=== PATIENT | male | born 1990 | race Caucasian/White ===

== ENCOUNTER 2016-10-16 23:22 | Emergency (ER) | payer OTHER ==
[2016-10-16 23:34] VITALS: BMI 32.5
[2016-10-16] MEDS ORDERED: MORPHINE 2 MG/ML SYRINGE IVP STA (23:40)
[2016-10-16] MEDS ORDERED: SODIUM CHLORIDE 1,000 ML IV STA ×2 (23:40)
[2016-10-16] MEDS ORDERED: ZOFRAN 4 MG/2 ML IVP STA (23:40)
[2016-10-16] MEDS ORDERED: DECADRON 4 MG/ML SDV IVP STA (23:40)
[2016-10-16] MEDS ORDERED: ROCEPHIN 1 GM in SODIUM CHLORIDE 50 ML IV STA (23:42)
[2016-10-16] MEDS ORDERED: ROCEPHIN ONE (23:59)
[2016-10-17 00:21] LABS: BASOPHILS # (AUTO) 0.1 K/uL (0-0.2); BASOPHILS % (AUTO) 0.6 % (0.0-3.0); EOSINOPHILS # (AUTO) 0.3 K/ul (0.0-0.7); EOSINOPHILS % (AUTO) 1.8 % (0.0-7.0); HEMATOCRIT 38.9 % (42.0-52.0); HEMOGLOBIN 13.2 g/dl (14.0-18.0); IMMATURE GRANULOCYTE % (AUTO) 0.7 % (0.0-5.0); LYMPHOCYTES # (AUTO) 3.3 K/uL (0.60-3.4); LYMPHOCYTES % (AUTO) 23.9 (10.0-50.0); MEAN CORPUSCULAR HEMOGLOBIN 26.9 pg (27.0-31.0); MEAN CORPUSCULAR HGB CONC 33.9 (31.8-35.4); MEAN CORPUSCULAR VOLUME 79.2 fl (80.0-94.0); MONOCYTES # (AUTO) 1.4 K/uL (0.4-2.0); NEUTROPHILS # (AUTO) 8.7 K/ul (2.0-6.9); PLATELET COUNT 258 10^3/uL (140-440); RED BLOOD COUNT 4.91 10^6/ul (4.70-6.10); WHITE BLOOD COUNT 13.75 K/ul (4.2-10.2)
[2016-10-17 00:32] LABS: MONO INTERNAL QC INTERNAL QC VALID
[2016-10-17 00:41] LABS: ALBUMIN 3.8 g/dL (3.4-5.0); ALBUMIN/GLOBULIN RATIO 1.09; ANION GAP 12.8; BILIRUBIN,TOTAL 0.35 mg/dL (0.00-1.20); BUN/CREATININE RATIO 10.94; CALCIUM 9.3 mg/dL (8.2-10.2); CREATININE 1.37 mg/dL (0.60-1.10); POTASSIUM 3.8 mmol/L (3.5-5.1); TOTAL PROTEIN 7.3 g/dL (6.4-8.2)
--- NOTE | 2016-10-17 01:35 | CT ---
EXAM: CT soft tissue neck without with intravenous contrast 10/16/2016. Sagittal and coronal refor matted images obtained HISTORY: Sore throat and fever COMPARISON: 06/21/2009 FINDINGS: The airway is patent and within the midline. Subtle soft tissue and prominence at the le cornelio of the palatine and lingular tonsils with suggestion of hyperemia. This may be infectious/infla mmatory. The retropharyngeal soft tissues appear within normal limits. There is no evidence of flu id collection or abscess. The epiglottis is within normal limits. The larynx shows no acute abnormality. The visualized port ion of the trachea is unremarkable. The pulmonary apices are unremarkable. Physiologic appearing lymph nodes are present within both sides of the neck. No pathologic lymphade nopathy. IMPRESSION: 1. Subtle soft tissue prominence with associated hyperemia the level of the palatine and lingual to nsils. This could be infectious/inflammatory. 2. The airway remains patent and within the midline. 3. No underlying fluid collection or abscess.
--- NOTE | 2016-10-17 02:09 | ED.PDOC ---
General ED Provider: Dr. WALI BAKER-ER Chief Complaint: Sore Throat Stated Complaint: my throat hurts Time Seen by Physician: 23:30 Mode of Arrival: Walk-In Information Source: Patient Exam Limitations: No limitations Nursing and Triage Documentation Reviewed and Agree: Yes EENT Complaint Exam - Throat Complaint/Exam Onset/Duration: 24hrs Symptoms Are: Still present Timimg: Constant Initial Severity: Mild Current Severity: Mild Alleviating: Reports: None Associated Signs and Symptoms: Reports: Fever. Denies: Dysphagia, Drooling, Foreign body sensation, Chills, Cough, Wheezing, Hoarseness, Sinus discomfort, Nasal congestion, Difficulty breathing, Lethargy, Irritability, Decreased activity, Vomiting, Diarrhea, Decreased hearing, Ear drainage Uvula Midline: Yes Nazia-tonsillar Fluctuence: No Scarlatinaform Rash Present: No Exanthem: Present: Pharynx Stridor Present: No Sinus Tenderness Present: No Tonsillar Hypertrophy Present: Yes Tonsillar Exudate Present: No Nazia-tonsillar Swelling Present: No Adenopathy Present: Yes Splenomegaly Present: No Differential Diagnoses: Tonsillitis Review of Systems - Review Of Systems Constitutional: Reports: Fever, Weakness Eyes: Reports: No symptoms Ears, Nose, Mouth, Throat: Reports: Throat pain, Throat swelling Respiratory: Reports: No symptoms Cardiac: Reports: No symptoms GI: Reports: No symptoms : Reports: No symptoms Musculoskeletal: Reports: No symptoms Skin: Reports: No symptoms Neurological: Reports: No symptoms Endocrine: Reports: No symptoms Hematologic/Lymphatic: Reports: No symptoms All Other Systems: Reviewed and Negative Past Medical History - Past Medical History Previously Healthy: Yes Endocrine: Reports: None Cardiovascular: Reports: None Respiratory: Reports: None Hematological: Reports: None Gastrointestinal: Reports: None Genitourinary: Reports: None Neuro/Psych: Reports: None Musculoskeletal: Reports: None Cancer: Reports: None - Surgical History General Surgical History: Reports: Unknown - Family History Family History: Reports: Unknown - Social History Smoking Status: Current every day smoker, Heavy tobacco smoker Hx Substance Use: No (occasional marijuana) Alcohol Screening: None Lives: With family - Immunizations Tetanus Shot up to Date: Yes Physical Exam - Physical Exam Appearance: Well-appearing, No pain distress, Well-nourished Eyes: DENIZ, EOMI, Conjunctiva clear ENT: Ears normal, Nose normal, Oropharynx normal Neck: Supple Respiratory: Airway patent Cardiovascular: RRR, Pulses normal, No rub, No murmur GI/: Soft, Nontender, No masses, Bowel sounds normal, No Organomegaly Musculoskeletal: Normal strength, ROM intact, No edema, No calf tenderness Skin: Warm, Dry, Normal color Neurological: Sensation intact, Motor intact, Reflexes intact, Cranial nerves intact, Alert, Oriented Psychiatric: Affect appropriate, Mood appropriate Interpretation - Radiology Interpretation Radiology Interpretation By: Radiologist Radiology Results: Positive ("soft tissue prominence of palatine/lingual tonsils ") Re-Evaluation - Re-Evaluation Time of Re-Evaluation: 02:10 Status: Improved Vital Signs Stable: Yes Pain Level: 1 Appearance: NAD Lungs: Clear Skin: Warm and Dry Neuro: Alert and Oriented X3 CV: RRR Critical Care Note - Critical Care Note Total Time (mins): 0 Course - Course Hematology/Chemistry: 10/16/16 23:59 10/16/16 23:59 Orders, Labs, Meds: Lab Review 10/16/16 23:59 WBC 13.75 H RBC 4.91 Hgb 13.2 L Hct 38.9 L MCV 79.2 L MCH 26.9 L MCHC 33.9 RDW Coeff of Adali 13.5 Plt Count 258 Immature Gran % (Auto) 0.7 Neut % (Auto) 63.0 Lymph % (Auto) 23.9 [place] % (Auto) 10.0 Eos % (Auto) 1.8 Baso % (Auto) 0.6 Immature Gran # (Auto) 0.1 Neut # 8.7 H Lymph # 3.3 [place] # 1.4 Eos # 0.3 Baso # 0.1 Sodium 138 Potassium 3.8 Chloride 105 Carbon Dioxide 24 Anion Gap 12.8 BUN 15 Creatinine 1.37 H Estimated GFR (MDRD) 63.00 BUN/Creatinine Ratio 10.94 Glucose 99 Calcium 9.3 Total Bilirubin 0.35 AST 25 ALT 40 Alkaline Phosphatase 58 Total Protein 7.3 Albumin 3.8 Globulin 3.5 Albumin/Globulin Ratio 1.09 Infectious [place] Assay Negative Orders Category Date Time Status NPO REMINDER: IMAGING ONCE CARE 10/16/16 23:41 Completed IV [ED IV/MEDIPORT/POWERPORT] .ONCE EMERGENCY 10/16/16 23:40 Active CBC W/ AUTO DIFF Stat LAB 10/16/16 23:59 Completed COMPREHENSIVE METABOLIC PANEL Stat LAB 10/16/16 23:59 Completed MOLECULAR GROUP A STREP Stat LAB 10/16/16 23:40 Results MONONUCLOSIS SCREEN Stat LAB 10/16/16 23:59 Completed STREP SCREEN Stat LAB 10/16/16 23:40 Results 0.9 % Sodium Chloride [Saline Flush] MEDS 10/16/16 23:40 Ordered 1 syr IVF PRN PRN Ceftriaxone Sodium [Rocephin] MEDS 10/16/16 23:59 Discontinued 1 gm .ROUTE .STK-MED ONE Ceftriaxone Sodium [Rocephin] 1 gm MEDS 10/16/16 23:42 Discontinued 0.9 % Sodium Chloride [Sodium Chloride] 50 ml IV ONCE Dexamethasone 4 mg/ml Inj [Decadron 4 mg/ml Sdv] MEDS 10/16/16 23:40 Discontinued 4 mg IVP ONCE STA Morphine Sulfate [Morphine 2 mg/ml Syringe] MEDS 10/16/16 23:40 Discontinued 2 mg IVP ONCE STA Ondansetron HCl/Pf [Zofran 4 mg/2 ml] MEDS 10/16/16 23:40 Discontinued 4 mg IVP ONCE STA Sodium Chloride 0.9% [Sodium Chloride] 1,000 ml MEDS 10/16/16 23:40 Active IV 100 mls/hr CT SOFT TISSUE NECK W/WO CONT Stat RADS 10/17/16 00:05 Completed Medications Generic Name Dose Route Start Last Admin Trade Name Freq PRN Reason Stop Dose Admin Sodium Chloride 1,000 mls @ 100 mls/hr 10/16/16 23:40 10/17/16 00:09 Sodium Chloride IV 10/17/16 09:39 100 mls/hr .Q10H STA Administration Sodium Chloride 1 syr 10/16/16 23:40 Saline Flush IVF PRN PRN To flush IV Discontinued Medications Generic Name Dose Route Start Last Admin Trade Name Freq PRN Reason Stop Dose Admin Dexamethasone Sodium Phosphate 4 mg 10/16/16 23:40 10/17/16 00:09 Decadron 4 Mg/Ml Sdv IVP 10/16/16 23:41 4 mg ONCE STA Administration Ceftriaxone Sodium 1 gm/ 50 mls @ 75 mls/hr 10/16/16 23:42 10/17/16 00:09 Sodium Chloride IV 10/17/16 00:21 75 mls/hr ONCE STA Administration Morphine Sulfate 2 mg 10/16/16 23:40 10/17/16 00:09 Morphine 2 Mg/Ml Syringe IVP 10/16/16 23:41 2 mg ONCE STA Administration Ondansetron HCl 4 mg 10/16/16 23:40 10/17/16 00:09 Zofran 4 Mg/2 Ml IVP 10/16/16 23:41 4 mg ONCE STA Administration Vital Signs: Temp Pulse Resp BP Pulse Ox 10/16/16 23:25 98.7 F 96 H 20 164/103 H 98 Departure - Departure Time of Disposition: 02:10 Disposition: HOME SELF-CARE Discharge Problem: Tonsillitis Instructions: Tonsillitis (ED) Condition: Good Pt referred to PMD for follow-up: Yes Additional Instructions: augmentin 875mg bid x 7days--push fluids--see clinic next week--and have kidney function rechecked.. Allergies/Adverse Reactions: Allergies No Known Allergies Allergy (Unverified 10/16/16 23:34) Home Medications: Ambulatory Orders Multivitamin [One Daily Multivitamin] 1 tab PO DAILY 10/16/16 Disposition Discussed With: Patient
[2016-10-17 03:43] VITALS: BP 140/82; TEMP 98.5
== END 2016-10-17 02:35 | disposition home or self-care (01) ==
LOC: ED 23:22
DX: J03.90 Acute tonsillitis, unspecified (principal); F17.210 Nicotine dependence, cigarettes, uncomplicated
CPT/HCPCS: 36415; 80053; 85025; 86308; 87651; 87880; 96361; 96365; 96375; 99284

== ENCOUNTER 2016-11-02 00:16 | Emergency (ER) ==
[2016-11-02 00:17] VITALS: BMI 32.5
[2016-11-02 00:30] VITALS: BP 140/78; TEMP 99.2
--- NOTE | 2016-11-02 01:09 | ED.PDOC ---
General ED Provider: Dr. AUDREY DE JESUS Chief Complaint: Bite Stated Complaint: Patient is a 25 year old male who comes to the Er with complaints of a bump on right outer thigh on wed evening, It became red, swollen and had come to a head the following nite. He popped it after shower and drainged tanish green discharge with blood. Pain has improved since. he has not been feeling well since, weak and tired, chills, diarrhea x5-6 today. area to right upper outer thigh is warm to touch, center is very dark approx 0.5cm, reddened area around is 4.5cmx 4cm. Time Seen by Physician: 01:05 Mode of Arrival: Walk-In Information Source: Patient Exam Limitations: No limitations Primary Care Provider: Shad RASCON Nursing and Triage Documentation Reviewed and Agree: Yes Skin Complaint Exam - Skin/Soft Tissue Complaint/Exam Onset/Duration: 1 week Symptoms Are: Still present Timing: Constant Initial Severity: Severe Current Severity: Mild Location: Right Thigh Character: Reports: Redness, Swelling, Raised, Painful Aggravating: Reports: Touch Associated Signs and Symptoms: Reports: Drainage (now drying up ), Bruising, Tenderness. Denies: Fever, Chills, Itching, Red streaks, Joint swelling Related History: Reports: Similar episode Related Surgical History: Reports: None Recent Exposure to Others w/Similar Symptoms: No Skin Findings: Present: Erythema Joint Tenderness Present: No Differential Diagnoses: Abscess, Cellulitis Review of Systems - Review Of Systems Constitutional: Reports: No symptoms Eyes: Reports: No symptoms Ears, Nose, Mouth, Throat: Reports: No symptoms Respiratory: Reports: No symptoms Cardiac: Reports: No symptoms GI: Reports: No symptoms : Reports: No symptoms Musculoskeletal: Reports: No symptoms Skin: Reports: Lesions Neurological: Reports: Anxiety Endocrine: Reports: No symptoms Hematologic/Lymphatic: Reports: No symptoms All Other Systems: Reviewed and Negative Past Medical History - Past Medical History Previously Healthy: Yes Endocrine: Reports: None Cardiovascular: Reports: None Respiratory: Reports: None Hematological: Reports: None Gastrointestinal: Reports: None Genitourinary: Reports: None Neuro/Psych: Reports: None Musculoskeletal: Reports: None Cancer: Reports: None - Surgical History General Surgical History: Reports: Unknown - Family History Family History: Reports: Unknown - Social History Smoking Status: Current every day smoker, Heavy tobacco smoker 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) Alcohol Screening: None - Immunizations Tetanus Shot up to Date: Yes Physical Exam - Physical Exam Appearance: Ill-appearing, Obese Pain Distress: Mild Eyes: DENIZ, EOMI, Conjunctiva clear ENT: Ears normal, Nose normal, Oropharynx normal Neck: Supple Respiratory: Airway patent, Breath sounds clear, Breath sounds equal, Respirations nonlabored Cardiovascular: RRR, Pulses normal, No rub, No murmur GI/: Soft, Nontender, No masses, Bowel sounds normal, No Organomegaly Musculoskeletal: Normal strength, ROM intact, No edema, No calf tenderness Skin: Warm, Dry Neurological: Sensation intact, Motor intact, Reflexes intact, Cranial nerves intact, Alert, Oriented Psychiatric: Affect appropriate, Mood appropriate Critical Care Note - Critical Care Note Total Time (mins): 0 Course - Course Orders, Labs, Meds: Orders Category Date Time Status Ibuprofen [Motrin] MEDS 11/02/16 01:11 Discontinued 600 mg PO ONCE STA Sulfamethoxazole/Trimethoprim [Bactrim Ds 800/160 mg] MEDS 11/02/16 01:11 Discontinued 1 tab PO ONCE STA Medications Discontinued Medications Generic Name Dose Route Start Last Admin Trade Name Freq PRN Reason Stop Dose Admin Ibuprofen 600 mg 11/02/16 01:11 11/02/16 01:20 Motrin PO 11/02/16 01:12 600 mg ONCE STA Administration Trimethoprim/Sulfamethoxazole 1 tab 11/02/16 01:11 11/02/16 01:19 Bactrim Ds 800/160 Mg PO 11/02/16 01:12 1 tab ONCE STA Administration Vital Signs: Temp Pulse Resp BP Pulse Ox 11/02/16 00:17 99.2 F 102 H 20 140/78 98 Departure - Departure Time of Disposition: 01:09 Disposition: HOME SELF-CARE Discharge Problem: Abscess Instructions: Abscess (ED) Condition: Fair Pt referred to PMD for follow-up: Yes Additional Instructions: take antibiotics as prescribed Take Motrin or Tylenol for fever. Follow up with PCP in 3 day Prescriptions: Ibuprofen [Motrin] 600 mg PO Q6H PRN #30 tablet PRN Reason: Analgesia Sulfamethoxazole/Trimethoprim [Bactrim Ds Tablet] 1 each PO BID #20 tablet Allergies/Adverse Reactions: Allergies No Known Allergies Allergy (Verified 11/02/16 00:30) Home Medications: Ambulatory Orders Multivitamin [One Daily Multivitamin] 1 tab PO DAILY 10/16/16 Ibuprofen [Motrin] 600 mg PO Q6H PRN #30 tablet 11/02/16 Sulfamethoxazole/Trimethoprim [Bactrim Ds Tablet] 1 each PO BID #20 tablet 11/02 Disposition Discussed With: Patient
[2016-11-02] MEDS: BACTRIM DS 800/160 MG PO STA (01:19)
[2016-11-02] MEDS: MOTRIN PO STA (01:20)
== END 2016-11-02 01:30 | disposition home or self-care (01) ==
LOC: ED 00:16
DX: L02.415 Cutaneous abscess of right lower limb (principal); F17.210 Nicotine dependence, cigarettes, uncomplicated
CPT/HCPCS: 99282

== ENCOUNTER 2017-10-26 20:31 | Emergency (ER) ==
[2017-10-26 20:42] VITALS: BP 138/92; TEMP 97.3; BMI 30.8
[2017-10-26] MEDS ORDERED: LOMOTIL PO STA (21:04)
[2017-10-26] MEDS ORDERED: ZOFRAN 4 MG/2 ML IVP STA (21:04)
[2017-10-26] MEDS ORDERED: LACTATED RINGERS 1,000 ML IV STA (21:04)
--- NOTE | 2017-10-26 21:42 | ED.PDOC ---
General ED Provider: Dr. AUDREY DE JESUS Chief Complaint: Nausea/Vomiting Stated Complaint: Patient is a 26 year old male who comes to the ER with Sudden onset abdominal pain, diarrhea and vomiting. States the pain is cramping. States he ate watermelon an hour ago. Took a TUMS antacid. Time Seen by Physician: 20:45 Mode of Arrival: Walk-In Information Source: Patient Exam Limitations: No limitations Primary Care Provider: GAYATHRI ALAMO Nursing and Triage Documentation Reviewed and Agree: Yes Reviewed sepsis parameters & appropriate labs ordered?: No System Inflammatory Response Syndrome: Pulse >90 BPM Sepsis Protocol: For patient's 13 years and over: Temp is 96.8 and below OR 101 and greater Pulse >90 BPM Resp >20/minute Acutely Altered Mental Status Are patient's symptoms suggestive of a new infection, such as: -Pneumonia -Skin, Soft Tissue -Endocarditis -UTI -Bone, Joint Infection -Implantable Device -Acute Abdominal Infection -Wound Infection -Meningitis -Blood Stream Catheter Infection -Unknown GI Complaint Exam - Vomiting/Diarrhea Complaint/Exam Onset/Duration: 2 hours Symptoms Are: Still present Episodes of Vomiting over last 24 Hours: 5 Episodes of Diarrhea Over Last 24 Hours: 10 Initial Severity: Moderate Current Severity: Moderate Character of Vomiting: Reports: Non-bilious Character of Diarrhea: Reports: Watery Aggravating: Reports: Food Alleviating: Reports: NPO Associated Signs and Symptoms: Reports: Light-headedness, Abdominal pain, Cramping Related History: Denies: Similar episode, Recent antibiotics Last Bowel Movement: just prior to arrival. Non-GI Risk Factors: Reports: None Surgical Obstruction Risk Factors: Reports: None Related Surgical History: Reports: None Abdominal Findings: Present: None [place] Respirations Present: No Differential Diagnoses: Gastritis, Viral Gastroenteritis, Bacterial Gastroenteritis Review of Systems - Review Of Systems Constitutional: Reports: No symptoms Eyes: Reports: No symptoms Ears, Nose, Mouth, Throat: Reports: No symptoms Respiratory: Reports: No symptoms Cardiac: Reports: No symptoms GI: Reports: Nausea, Poor appetite, Poor fluid intake, Vomiting : Reports: No symptoms Musculoskeletal: Reports: No symptoms Skin: Reports: No symptoms Neurological: Reports: Anxiety Endocrine: Reports: No symptoms Hematologic/Lymphatic: Reports: No symptoms All Other Systems: Reviewed and Negative Past Medical History - Past Medical History Previously Healthy: Yes Endocrine: Reports: None Cardiovascular: Reports: None Respiratory: Reports: Asthma Hematological: Reports: None Gastrointestinal: Reports: None Genitourinary: Reports: None Neuro/Psych: Reports: None Musculoskeletal: Reports: Gout Cancer: Reports: None Other Pertinent Past Medical History: pyloric stenosis as infant, - Surgical History General Surgical History: Reports: Adenoidectomy, Other (pe tubes ) - Family History Family History: Reports: Unknown - Social History Smoking Status: Current every day smoker, Heavy tobacco smoker Hx Substance Use: Yes (occasionally) Alcohol Screening: None Physical Exam - Physical Exam Appearance: Ill-appearing Ill-appearing: Moderate Respiratory: Airway patent Cardiovascular: Pulses normal, No rub, No murmur, Tachycardia GI/: Soft, Nontender, No masses, Bowel sounds normal, No Organomegaly Musculoskeletal: Normal strength, ROM intact, No edema, No calf tenderness Skin: Warm, Dry, Normal color Psychiatric: Anxious Interpretation - Radiology Interpretation Radiology Interpretation By: Radiologist Radiology Results: Negative Exam Interpreted: CT Scan Critical Care Note - Critical Care Note Total Time (mins): 0 Course - Course Hematology/Chemistry: 10/26/17 21:10 10/26/17 21:10 Orders, Labs, Meds: Lab Review 10/26/17 10/26/17 21:10 21:10 WBC 20.11 H RBC 5.52 Hgb 14.9 Hct 44.5 MCV 80.6 MCH 27.0 MCHC 33.5 RDW Coeff of Adali 13.5 Plt Count 336 Immature Gran % (Auto) 0.7 Neut % (Auto) 73.3 Lymph % (Auto) 17.4 [place] % (Auto) 7.1 Eos % (Auto) 1.1 Baso % (Auto) 0.4 Immature Gran # (Auto) 0.1 Neut # (Auto) 14.7 H Lymph # (Auto) 3.5 H [place] # (Auto) 1.4 Eos # (Auto) 0.2 Baso # (Auto) 0.1 Sodium 140 Potassium 4.0 Chloride 102 Carbon Dioxide 26 Anion Gap 16.0 BUN 11 Creatinine 1.44 H Estimated GFR (MDRD) 59.00 BUN/Creatinine Ratio 7.63 Glucose 124 H Calcium 10.1 Total Bilirubin 0.4 AST 28 ALT 35 Alkaline Phosphatase 79 Total Protein 8.5 H Albumin 4.3 Globulin 4.2 Albumin/Globulin Ratio 1.02 Orders Category Date Time Status ED IV/MEDIPORT/POWERPORT .ONCE EMERGENCY 10/26/17 21:03 Active CBC W/ AUTO DIFF Stat LAB 10/26/17 21:10 Completed COMPREHENSIVE METABOLIC PANEL Stat LAB 10/26/17 21:10 Completed 0.9 % Sodium Chloride [Saline Flush] MEDS 10/26/17 21:04 Discontinued 1 syr IVF PRN PRN Dicyclomine HCl [Bentyl] MEDS 10/26/17 22:50 Discontinued 20 mg PO ONCE STA Diphenoxylate HCl/Atropine [Lomotil] MEDS 10/26/17 21:04 Discontinued 1 tab PO ONCE STA Ondansetron HCl/Pf [Zofran 4 mg/2 ml] MEDS 10/26/17 21:04 Discontinued 4 mg IVP ONCE STA Ringers Lactated Solution [Lactated Ringers] 1,000 ml MEDS 10/26/17 21:[address] ABD/PEL WO RENAL STONE PROT Stat RADS 10/26/17 22:50 Completed Medications Discontinued Medications Generic Name Dose Route Start Last Admin Trade Name Freq PRN Reason Stop Dose Admin Dicyclomine HCl 20 mg 10/26/17 22:50 10/26/17 23:18 Bentyl PO 10/26/17 22:51 20 mg ONCE STA Administration Diphenoxylate HCl/Atropine 1 tab 10/26/17 21:04 10/26/17 21:56 Lomotil PO 10/26/17 21:05 1 tab ONCE STA Administration Lactated Ringer's 1,000 mls @ 1,000 mls/hr 10/26/17 21:04 10/26/17 21:25 Lactated Ringers IV 10/26/17 22:03 1,000 mls/hr BOLUS STA Administration Ondansetron HCl 4 mg 10/26/17 21:04 10/26/17 21:25 Zofran 4 Mg/2 Ml IVP 10/26/17 21:05 4 mg ONCE STA Administration Sodium Chloride 1 syr 10/26/17 21:04 Saline Flush IVF PRN PRN To flush IV Vital Signs: Temp Pulse Resp BP Pulse Ox 10/26/17 20:32 97.3 F L 111 H 20 138/92 H 98 Departure - Departure Time of Disposition: 00:03 Disposition: HOME SELF-CARE Discharge Problem: Gastroenteritis and colitis, viral, Gastroenteritis due to food toxin Instructions: Gastroenteritis (ED) Condition: Fair Pt referred to PMD for follow-up: Yes IPMP verified?: No Additional Instructions: Push fluids Follow up with PCP in 2-3 days Return if worse Prescriptions: Dicyclomine HCl [Bentyl] 10 mg PO TID PRN #20 capsule PRN Reason: Abdominal Pain Diphenoxylate HCl/Atropine [Lomotil 2.5-0.025 mg Tablet] 1 each PO TID #15 tablet Allergies/Adverse Reactions: Allergies No Known Allergies Allergy (Verified 10/26/17 20:39) Home Medications: Ambulatory Orders Dicyclomine HCl [Bentyl] 10 mg PO TID PRN #20 capsule 10/27/17 Diphenoxylate HCl/Atropine [Lomotil 2.5-0.025 mg Tablet] 1 each PO TID #15 tablet 10/27/17 Disposition Discussed With: Patient, Family
[2017-10-26] MEDS ORDERED: BENTYL PO STA (22:50)
--- NOTE | 2017-10-26 23:48 | CT ---
EXAM: CT of the abdomen and pelvis without contrast. HISTORY: Abdominal pain. Leukocytosis. Diarrhea. PROCEDURE: Contiguous axial CT images of the abdomen and pelvis without contrast with coronal and sa gittal reformats. FINDINGS: The liver, gallbladder, pancreas, spleen, adrenal glands and kidneys are normal in appearan ce. The abdominal aorta is normal in appearance. The visualized loops of bowel and appendix are sole l in appearance. No free fluid or free air in the abdomen or pelvis. The bladder is minimally filled which limits the evaluation. The seminal vesicles and prostate gland are unremarkable. The bones and soft tissues are unremarkable. Impression: Negative CT of the abdomen and pelvis.
== END 2017-10-27 01:00 | disposition home or self-care (01) ==
LOC: ED 20:31
DX: K52.9 Noninfective gastroenteritis and colitis, unspecified (principal); F17.210 Nicotine dependence, cigarettes, uncomplicated
CPT/HCPCS: 36415; 74176; 80053; 85025; 96361; 96374; 99283

== ENCOUNTER 2017-12-29 06:37 | Emergency (ER) ==
[2017-12-29 06:49] VITALS: TEMP 98.4; BMI 31.0
--- NOTE | 2017-12-29 07:05 | ED.PDOC ---
General ED Provider: Dr. WALI PRASAD Chief Complaint: Non-specific Complaint Stated Complaint: Mouth Trauma. HPI: Patient states he was assembling exercize equipment when the metal bars suddenly came apart stiking him in the mouth. Sustained trauma to his lips which are swollen and painful. Laceration inside upper lip/gums. Bleeding controlled. Pain to lips, teeth, upper gums. Time Seen by Physician: 07:00 Mode of Arrival: Walk-In Information Source: Patient, Other (Female aquaintance) Exam Limitations: No limitations Nursing and Triage Documentation Reviewed and Agree: Yes Does patient meet sepsis criteria?: No System Inflammatory Response Syndrome: Not Applicable Sepsis Protocol: For patient's 13 years and over: Temp is 96.8 and below OR 101 and greater Pulse >90 BPM Resp >20/minute Acutely Altered Mental Status Are patient's symptoms suggestive of a new infection, such as: -Pneumonia -Skin, Soft Tissue -Endocarditis -UTI -Bone, Joint Infection -Implantable Device -Acute Abdominal Infection -Wound Infection -Meningitis -Blood Stream Catheter Infection -Unknown Trauma/Injury Complaint Exam - Facial Injury Complaint/Exam Location of Pain: Reports: Upper lip Onset/Duration: 1 hour Symptoms Are: Still present Onset of Pain: Reports: Immediate Initial Severity: Moderate Current Severity: Moderate Location: Reports: Discrete Character: Reports: Sharp, Throbbing Alleviating: Reports: None Aggravating: Reports: Movement Associated Signs and Symptoms: Reports: Swelling, Numbness, Tingling Related Surgical History: Reports: None Facial Findings: Present: Normal findings Differential Diagnoses: Laceration, Other (blunt trauma) Review of Systems - Review Of Systems Constitutional: Reports: No symptoms Eyes: Reports: No symptoms Ears, Nose, Mouth, Throat: Reports: No symptoms, Mouth pain, Mouth swelling Respiratory: Reports: No symptoms Cardiac: Reports: No symptoms GI: Reports: No symptoms : Reports: No symptoms Musculoskeletal: Reports: No symptoms Skin: Reports: No symptoms Neurological: Reports: No symptoms Endocrine: Reports: No symptoms Hematologic/Lymphatic: Reports: No symptoms All Other Systems: Reviewed and Negative Past Medical History - Past Medical History Previously Healthy: Yes Endocrine: Reports: None Cardiovascular: Reports: None Respiratory: Reports: Asthma Hematological: Reports: None Gastrointestinal: Reports: None Genitourinary: Reports: None Neuro/Psych: Reports: None Musculoskeletal: Reports: Gout Cancer: Reports: None Other Pertinent Past Medical History: pyloric stenosis as , - Surgical History General Surgical History: Reports: Adenoidectomy, Other (pe tubes ) - Family History Family History: Reports: Unknown - Social History Smoking Status: Current every day smoker, Heavy tobacco smoker 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) Alcohol Screening: None - Immunizations Tetanus Shot up to Date: No Physical Exam - Physical Exam Appearance: Well-appearing, Obese Ill-appearing: Mild Pain Distress: Moderate Eyes: DENIZ, EOMI, Conjunctiva clear ENT: Ears normal, Nose normal, Oropharynx normal Respiratory: Airway patent, Breath sounds clear, Breath sounds equal, Respirations nonlabored Interpretation - Radiology Interpretation Radiology Interpretation By: ED Physician Radiology Results: No acute changes Exam Interpreted: CT Scan (maxillafacial) Procedures - Laceration/Wound Repair Upper Lip Wound Description: Irregular, Stellate Wound Length (cm): 2 Wound Width: .5cm Wound Depth: 3mm Wound Explored: Clean Wound Irrigated: Yes Wound Prep: Saline, Hibiclens, Betadine Anesthesia: Lidocaine Wound Repaired With: Sutures Suture Size and Type: 5-0 Vicryl Number of Sutures: 6 Layer Closure?: No Re-Evaluation - Re-Evaluation Time of Re-Evaluation: 08:30 Status: Improved Vital Signs Stable: Yes Pain Level: Persistent/discussed pain mgt for home Appearance: NAD Critical Care Note - Critical Care Note Total Time (mins): 0 Course - Course Orders, Labs, Meds: Orders Category Date Time Status Acetaminophen [Tylenol] MEDS 12/29/17 07:20 Discontinued 650 mg PO ONCE STA Diphth,Pertuss(Acell),Tet Vac [Boostrix] MEDS 12/29/17 07:17 Discontinued 0.5 ml IM .ONCE ONE Lidocaine HCl/Pf [Lidocaine HCl 1% Sdv] MEDS 12/29/17 07:17 Discontinued 5 [address] ONCE [address]A CT MAXILLOFACIAL W/O CONTRAST Stat RADS 12/29/17 07:19 Taken Medications Discontinued Medications Generic Name Dose Route Start Last Admin Trade Name Freq PRN Reason Stop Dose Admin Acetaminophen 650 mg 12/29/17 07:20 12/29/17 07:27 Tylenol PO 12/29/17 07:21 650 mg ONCE STA Administration Diphtheria/Pertussis/Tetanus Vacc 0.5 ml 12/29/17 07:17 08/14/18 07:29 Boostrix IM 12/29/17 07:18 0.5 ml .ONCE ONE Administration Lidocaine HCl 5 ml 12/29/17 07:17 Lidocaine Hcl 1% Sdv SUBCUT 12/29/17 07:18 ONCE STA Vital Signs: Temp Pulse Resp BP Pulse Ox 12/29/17 06:40 98.4 F 84 20 152/100 H 99 Departure - Departure Time of Disposition: 08:40 Disposition: HOME SELF-CARE Discharge Problem: Laceration of lip Instructions: Laceration (ED), Care For Your Stitches (ED) Condition: Good Pt referred to PMD for follow-up: Yes (1 week) IPMP verified?: No Additional Instructions: Take antibiotics as directed Take Ibuprofen 200 mg 3 tabs every 6 hrs for control of pain Evans may be taken for unrelieved pain Rinse mouth out with warm salt water Follow up W pcp 1 wk Monitor BP levels at home( last BP here 153/96) Allergies/Adverse Reactions: Allergies No Known Allergies Allergy (Verified 12/29/17 06:38) Home Medications: Ambulatory Orders Cephalexin [Keflex] 500 mg PO BID #14 capsule 12/29/17 Hydrocodone/Acetaminophen [Evans 5-325 Tablet] 1 each PO PRN PRN #15 tablet Disposition Discussed With: Patient
[2017-12-29] MEDS ORDERED: LIDOCAINE HCL 1% SDV SUBCUT STA (07:17)
[2017-12-29] MEDS ORDERED: BOOSTRIX IM ONE (07:17)
[2017-12-29] MEDS ORDERED: TYLENOL PO STA (07:20)
--- NOTE | 2017-12-29 08:38 | CT ---
EXAM: CT of the maxillofacial region without contrast History: Trauma to the upper lip Technique: Multiplanar CT images through the maxillofacial region were obtained without the administ ration of IV contrast Findings: A few small mucous retention cyst or polyps seen within the right maxillary sinus measurin g up to 1.1 cm. No air-fluid levels are seen within the sinuses. Mild mucosal thickening and debris within the posterior left ethmoid air cells. Mastoid air cells are clear. Nasal septum is bowed to the left. Bilateral ostiomeatal units are not occluded. No acute fracture or dislocation. Orbits a re intact. The visualized intracranial contents demonstrate no acute findings. Multiple dental alex s and scattered dental lucencies. Focal soft tissue swelling of the upper left. Impression: 1. No acute fracture. 2. Soft tissue swelling of the upper lip. 3. Mild sinus disease. 4. Multiple dental caries and scattered periapical dental lucencies/abscesses. Recommend dental exa mination.
[2017-12-29 08:55] VITALS: BP 153/96
== END 2017-12-29 09:08 | disposition home or self-care (01) ==
LOC: ED 06:37
DX: S01.511A Laceration without foreign body of lip, initial encounter (principal); W20.8XXA Other cause of strike by thrown, projected or falling object, initial encounter; F17.210 Nicotine dependence, cigarettes, uncomplicated
CPT/HCPCS: 90471; 90715; 99283

== ENCOUNTER 2018-02-13 07:36 | Emergency (ER) ==
[2018-02-13 07:41] VITALS: BP 153/99; TEMP 98.8; BMI 28.7
--- NOTE | 2018-02-13 07:59 | ED.PDOC ---
General ED Provider: Dr. WALI PRASAD Chief Complaint: Foot Pain/Injury Stated Complaint: Lt Foot Pain. States awakened this morning with severe pain to top of Lt Foot. Denies known injury or insect bite. Pain with weight bearing ambulation. States walked hospial. Time Seen by Physician: 07:50 Mode of Arrival: Wheelchair Information Source: Patient Nursing and Triage Documentation Reviewed and Agree: Yes Does patient meet sepsis criteria?: No System Inflammatory Response Syndrome: Not Applicable Sepsis Protocol: For patient's 13 years and over: Temp is 96.8 and below OR 101 and greater Pulse >90 BPM Resp >20/minute Acutely Altered Mental Status Are patient's symptoms suggestive of a new infection, such as: -Pneumonia -Skin, Soft Tissue -Endocarditis -UTI -Bone, Joint Infection -Implantable Device -Acute Abdominal Infection -Wound Infection -Meningitis -Blood Stream Catheter Infection -Unknown Musculoskeletal Complaint Exam - Ankle/Foot Complaint/Exam Location of Injury: Reports: Left, Foot Mechanism of Injury: Reports: No known trauma Onset/Duration: This AM Symptoms Are: Reports: Still present Onset of Pain: Reports: Immediate (Upon awakening this morning) Initial Severity: Moderate Current Severity: Moderate Location: Reports: Discrete Character: Reports: Sharp, Aching Alleviating: Reports: Rest Aggravating: Reports: Movement, Weight bearing Able to Bear Weight: Yes Associated Signs and Symptoms: Reports: Redness Gout Risk Factors: Reports: None Related Surgical History: Reports: None Lower Extremity Findings: Present: Swelling, Erythema, Warmth (circular area dorsal mid lt foot ofver area of dorsal pedal pulse pulsation approx 2 X 2 cm, warm and tender to touch; associated discomfort to palpation and passive movement distally of 2nd and 3rd metatarsal) Achilles Tendon Abnormality: No Tenderness: Present: Midfoot Limited Range of Motion: Present: Dorsiflexion, Plantarflexion Differential Diagnosis: Cellulitis, Infection, Tendonitis Review of Systems - Review Of Systems Constitutional: Reports: No symptoms Eyes: Reports: No symptoms Ears, Nose, Mouth, Throat: Reports: No symptoms Respiratory: Reports: No symptoms Cardiac: Reports: No symptoms GI: Reports: No symptoms : Reports: No symptoms Musculoskeletal: Reports: No symptoms Skin: Reports: No symptoms Neurological: Reports: No symptoms Endocrine: Reports: No symptoms Hematologic/Lymphatic: Reports: No symptoms All Other Systems: Reviewed and Negative Past Medical History - Past Medical History Previously Healthy: Yes Endocrine: Reports: None Cardiovascular: Reports: None Respiratory: Reports: Asthma Hematological: Reports: None Gastrointestinal: Reports: None Genitourinary: Reports: None Neuro/Psych: Reports: None Musculoskeletal: Reports: Gout Cancer: Reports: None Other Pertinent Past Medical History: pyloric stenosis as infant, - Surgical History General Surgical History: Reports: Adenoidectomy, Other (pe tubes ) - Family History Family History: Reports: Unknown - Social History Smoking Status: Current every day smoker, Heavy tobacco smoker 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) Alcohol Screening: None Physical Exam - Physical Exam Appearance: Well-appearing, No pain distress, Well-nourished Eyes: DENIZ, EOMI, Conjunctiva clear ENT: Ears normal, Nose normal, Oropharynx normal Respiratory: Airway patent, Breath sounds clear, Breath sounds equal, Respirations nonlabored Cardiovascular: RRR, Pulses normal, No rub, No murmur GI/: Soft, Nontender, No masses, Bowel sounds normal, No Organomegaly Musculoskeletal: Normal strength, ROM intact, No edema, No calf tenderness, Edema (moderate) Skin: Warm, Dry, Normal color Neurological: Sensation intact, Motor intact, Reflexes intact, Cranial nerves intact, Alert, Oriented Psychiatric: Affect appropriate, Mood appropriate Interpretation - Radiology Interpretation Radiology Interpretation By: Radiologist Radiology Results: Positive Exam Interpreted: CT Scan Xray Comments: Cellulitis/inflamatory soft tissue changes Re-Evaluation - Re-Evaluation Time of Re-Evaluation: 09:40 Status: Unchanged Vital Signs Stable: Yes Appearance: NAD Lungs: Clear Skin: Warm and Dry Neuro: Alert and Oriented X3 CV: RRR Critical Care Note - Critical Care Note Total Time (mins): 0 Course - Course Hematology/Chemistry: 02/13/18 08:20 02/13/18 08:20 Orders, Labs, Meds: Lab Review 02/13/18 02/13/18 08:20 08:20 WBC 13.89 H RBC 4.72 Hgb 12.6 L Hct 37.4 L MCV 79.2 L MCH 26.7 L MCHC 33.7 RDW Coeff of Adali 13.4 Plt Count 269 Immature Gran % (Auto) 0.9 Neut % (Auto) 70.6 Lymph % (Auto) 17.4 Bacon % (Auto) 10.2 H Eos % (Auto) 0.4 Baso % (Auto) 0.5 Immature Gran # (Auto) 0.1 Neut # (Auto) 9.8 H Lymph # (Auto) 2.4 Bacon # (Auto) 1.4 Eos # (Auto) 0.1 Baso # (Auto) 0.1 ESR 23 H Sodium 138.3 Potassium 3.77 Chloride 100.9 Carbon Dioxide 29.0 Anion Gap 12.17 BUN 14.2 Creatinine 1.23 H Estimated GFR (MDRD) 70.00 BUN/Creatinine Ratio 11.54 Glucose 105.0 Uric Acid 9.78 H Calcium 9.41 Total Bilirubin 0.23 AST 37.4 ALT 36.6 Alkaline Phosphatase 74.8 Total Protein 7.96 Albumin 4.45 Globulin 3.51 Albumin/Globulin Ratio 1.26 Orders Category Date Time Status CBC W/ AUTO DIFF Stat LAB 02/13/18 08:20 Completed COMPREHENSIVE METABOLIC PANEL Stat LAB 02/13/18 08:20 Completed ESR Stat LAB 02/13/18 08:20 Completed URIC ACID Stat LAB 02/13/18 08:[address] FOOT LEFT WITHOUT CONTRAST Stat RADS 02/13/18 08:10 Completed Vital Signs: Temp Pulse Resp BP Pulse Ox 02/13/18 07:37 98.8 F 126 H 16 153/99 H 98 Departure - Departure Time of Disposition: 09:45 Disposition: HOME SELF-CARE Discharge Problem: Cellulitis of left foot, Hyperuricemia, Creatinine elevation Instructions: Cellulitis (ED) Condition: Good Pt referred to PMD for follow-up: Yes (1 week) IPMP verified?: No Additional Instructions: Hyperuricemia:Often times associated with Gout. Gout normally manifests as acute monoarticular arthitis involving the Great Toe (1st toe of either foot) Hyperuricemia Decreased efficiency of renal uric acid excretion is responsible for about 85 to 90 percent of primary or secondary hyperuricemia.Uric acid is the end product of the metabolism of purine compounds. Uric acid is produced in the liver from the degradation of dietary and endogenously synthesized purine compounds. Uric acid is not typically ingested, although dietary intake provides a significant source of urate precursors. Urate production involves the breakdown of the purine mononucleotides, guanylic acid, inosinic acid, and adenylic acid, ultimately into the purine bases, guanine and hypoxanthine. These latter two compounds are then metabolized to xanthine, which is irreversibly oxidized by xanthine oxidase to produce uric acid (figure 1). (See 'Uric acid production' above.) Human tissues have a very limited ability to metabolize urate, which must be eliminated by the kidney and the gut to maintain homeostasis. Uric acid disposal by the kidney involves glomerular filtration of nearly all urate from the blood and tubular reabsorption and secretion mechanisms that normally result in net reabsorption of about 90 percent of the uric acid filtered at the glomerulus. The entry of urate into the intestine is mediated at least in part by the high-capacity urate efflux transporter, ABCG2, the product of the ABCG2 gene, which is also expressed in proximal renal tubular epithelium. Avoid tight fitting shoes Apply Warm moist heat to area of discomfort. If worsens return to ER Allergies/Adverse Reactions: Allergies No Known Allergies Allergy (Verified 02/13/18 07:43) Home Medications: Ambulatory Orders Allopurinol 100 mg PO BID #10 tablet 02/13/18 Cephalexin [Keflex] 500 mg PO BID #14 capsule 02/13/18 Tramadol HCl 50 mg PO Q6HR #20 tablet 02/13/18 Disposition Discussed With: Patient
--- NOTE | 2018-02-13 08:58 | CT ---
EXAM: CT left foot without contrast HISTORY: Swelling and erythema with severe pain. There is no known injury. COMPARISON: None TECHNIQUE: Serial axial images of the left foot were performed without contrast. These are noncontr ast and mildly limited. Images are reviewed in multiple planes. FINDINGS: The distal tibia and fibula are normal. Osseous structures in the foot are normal in appea naida and position. There is no lytic or blastic lesion. The arch is maintained. Musculature and s oft tissues in the right lower leg are normal. There is hazy ground-glass throughout the subcutaneou s fat most pronounced on the dorsal and medial aspect of the foot. There is no focal fluid collectio n. There is no subcutaneous gas. IMPRESSION: 1. The subcutaneous ground-glass throughout the subcutaneous fat in the medial dorsal aspect of the right foot with no focal fluid collection or subcutaneous gas. Findings are suggestive of inflammati on/cellulitis versus early infection with no visualized abscess. 2. No acute osseous abnormality.
[2018-02-13] MEDS ORDERED: TYLENOL PO STA (09:24)
[2018-02-13] MEDS ORDERED: DEPO-MEDROL IM STA (09:49)
== END 2018-02-13 10:15 | disposition home or self-care (01) ==
LOC: ED 07:36
DX: L03.116 Cellulitis of left lower limb (principal); E79.0 Hyperuricemia without signs of inflammatory arthritis and tophaceous disease; R79.89 Other specified abnormal findings of blood chemistry; F17.210 Nicotine dependence, cigarettes, uncomplicated
CPT/HCPCS: 36415; 80053; 84550; 85025; 85651; 96372; 99283

== ENCOUNTER 2019-01-12 00:02 | Emergency (ER) ==
[2019-01-12 00:10] VITALS: BP 164/82; TEMP 99.5
[2019-01-12 00:12] VITALS: BMI 28.6
--- NOTE | 2019-01-12 00:43 | ED.PDOC ---
General ED Provider: Dr. AUDREY DE JESUS Chief Complaint: Foot Pain/Injury Stated Complaint: Patient is a 28 year old male who comes to the ER with complaints of right foot and ankle pain and swelling with no injury. Time Seen by Physician: 00:42 Mode of Arrival: Wheelchair Information Source: Patient Nursing and Triage Documentation Reviewed and Agree: Yes Does patient meet sepsis criteria?: No System Inflammatory Response Syndrome: Not Applicable Sepsis Protocol: For patient's 13 years and over: Temp is 96.8 and below OR 101 and greater Pulse >90 BPM Resp >20/minute Acutely Altered Mental Status Are patient's symptoms suggestive of a new infection, such as: -Pneumonia -Skin, Soft Tissue -Endocarditis -UTI -Bone, Joint Infection -Implantable Device -Acute Abdominal Infection -Wound Infection -Meningitis -Blood Stream Catheter Infection -Unknown Musculoskeletal Complaint Exam - Ankle/Foot Complaint/Exam Location of Injury: Reports: Right, Ankle, Foot Mechanism of Injury: Reports: No known trauma Onset/Duration: 4 days Symptoms Are: Reports: Still present Initial Severity: Severe Current Severity: Moderate Location: Reports: Diffuse Character: Reports: Aching, Throbbing Alleviating: Reports: None Aggravating: Reports: Movement, Weight bearing Able to Bear Weight: Yes Associated Signs and Symptoms: Reports: Swelling Gout Risk Factors: Reports: Male Lower Extremity Findings: Present: Swelling, Tenderness Achilles Tendon Abnormality: No Tenderness: Present: Lateral malleolus Limited Range of Motion: Present: Inversion Ankle/Foot Picture: 1 - pain and tenderness with swelling and warmth Differential Diagnosis: Gout, Sprain, Strain Review of Systems - Review Of Systems Constitutional: Reports: No symptoms Eyes: Reports: No symptoms Ears, Nose, Mouth, Throat: Reports: No symptoms Respiratory: Reports: No symptoms Cardiac: Reports: No symptoms GI: Reports: No symptoms : Reports: No symptoms Musculoskeletal: Reports: Gout, Joint swelling Skin: Reports: No symptoms Neurological: Reports: No symptoms Endocrine: Reports: No symptoms Hematologic/Lymphatic: Reports: No symptoms All Other Systems: Reviewed and Negative Past Medical History - Past Medical History Previously Healthy: Yes Endocrine: Reports: None Cardiovascular: Reports: None Respiratory: Reports: Asthma Hematological: Reports: None Gastrointestinal: Reports: None Genitourinary: Reports: None Neuro/Psych: Reports: None Musculoskeletal: Reports: Arthritis, Gout Cancer: Reports: None Other Pertinent Past Medical History: pyloric stenosis as infant, - Surgical History General Surgical History: Reports: Adenoidectomy, Other (pe tubes ) - Family History Family History: Reports: Unknown - Social History Smoking Status: Current every day smoker, Heavy tobacco smoker 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) Alcohol Screening: None - Immunizations Tetanus Shot up to Date: Yes Physical Exam - Physical Exam Appearance: Well-appearing Pain Distress: Moderate Respiratory: Airway patent, Breath sounds clear, Breath sounds equal, Respirations nonlabored Cardiovascular: RRR, Pulses normal, No rub, No murmur Skin: Warm, Dry Neurological: Sensation intact, Motor intact, Cranial nerves intact, Alert, Oriented Psychiatric: Anxious Critical Care Note - Critical Care Note Total Time (mins): 0 Course - Course Orders, Labs, Meds: Orders Category Date Time Status Colchicine [Colcrys] MEDS 01/12/19 00:49 Discontinued 1.2 mg PO ONCE STA Dexamethasone 4 mg/ml Inj [Decadron 4 mg/ml Sdv] MEDS 01/12/19 00:49 Discontinued 8 mg IM ONCE STA Indomethacin [Indocin] MEDS 01/12/19 00:49 Discontinued 50 mg PO ONCE STA Medications Discontinued Medications Generic Name Dose Route Start Last Admin Trade Name Freq PRN Reason Stop Dose Admin Colchicine 1.2 mg 01/12/19 00:49 01/12/19 00:58 Colcrys PO 01/12/19 00:50 1.2 mg ONCE STA Administration Dexamethasone Sodium Phosphate 8 mg 01/12/19 00:49 01/12/19 00:58 Decadron 4 Mg/Ml Sdv IM 01/12/19 00:50 8 mg ONCE STA Administration Indomethacin 50 mg 01/12/19 00:49 01/12/19 00:59 Indocin PO 01/12/19 00:50 50 mg ONCE STA Administration Vital Signs: Temp Pulse Resp BP Pulse Ox 01/12/19 00:03 99.5 F 101 H 18 164/82 H 98 Departure - Departure Time of Disposition: 03:15 Disposition: HOME SELF-CARE Discharge Problem: Gout attack Qualifiers: Gout site: ankle Gout etiology: idiopathic Laterality: right Qualified Code(s) : M10.071 - Idiopathic gout, right ankle and foot Instructions: Gout (ED) Condition: Stable Pt referred to PMD for follow-up: Yes IPMP verified?: No Additional Instructions: Take Medications as needed for pain . Follow low purine diet. Prescriptions: Indomethacin [Indocin] 25 mg PO TIDWM PRN #60 capsule PRN Reason: Gout Allergies/Adverse Reactions: Allergies No Known Allergies Allergy (Verified 02/13/18 07:43) Home Medications: Ambulatory Orders Indomethacin [Indocin] 25 mg PO TIDWM PRN #60 capsule 01/12/19 Disposition Discussed With: Patient
[2019-01-12] MEDS ORDERED: INDOCIN PO STA (00:49)
[2019-01-12] MEDS ORDERED: DECADRON 4 MG/ML SDV IM STA (00:49)
[2019-01-12] MEDS ORDERED: COLCRYS PO STA (00:49)
== END 2019-01-12 01:20 | disposition home or self-care (01) ==
LOC: ED 00:02
DX: M10.071 Idiopathic gout, right ankle and foot (principal); F17.210 Nicotine dependence, cigarettes, uncomplicated
CPT/HCPCS: 96372; 99282